=== PATIENT | female | born 1970 | race Asian ===

== ENCOUNTER 2019-11-25 09:41 | Outpatient (CLI) | payer MEDICAID ==
[~2019-11-25] VITALS: Ht 154.9 cm; Wt 70.8 kg
[2019-11-25 10:18] VITALS: BP 117/79
[2019-11-25] MEDS ORDERED: CLARITIN10 M2 ORAL (10:18)
[2019-11-25] MEDS ORDERED: FERROUS SULFAT325 MG ORAL (10:18)
[2019-11-25] MEDS ORDERED: PROAIR HFA8.5 GM INH (10:18)
--- NOTE | 2019-11-25 12:30 | Consultation ---
DATE OF CONSULTATION: 11/25/2019 CONSULTING PHYSICIAN: Clive Chavez M.D. CHIEF COMPLAINT: Rectal bleeding. HISTORY OF PRESENT ILLNESS: This is a 49-year-old female with past medical history of asthma, history of anemia, gallstones, presents to us for complaint of rectal bleeding and anemia. No prior history of endoscopy. No colonoscopy. PAST MEDICAL HISTORY: 1. Asthma. 2. Anemia. 3. Hemorrhoids. 4. Gallstones. PAST SURGICAL HISTORY: Tubal ligation, , cholecystectomy, hemorrhoidectomy. MEDICATIONS: Please see medication reconciliation list. ALLERGIES: To sulfa, penicillin, tetracycline, and Cipro. FAMILY HISTORY: Aunt had ovarian cancer. SOCIAL HISTORY: The patient denies any tobacco, alcohol, or IV drug abuse. REVIEW OF SYSTEMS: Positive for rectal bleeding. Otherwise, no weight loss. No change in bowel habits. PHYSICAL EXAMINATION: VITAL SIGNS: Temperature 97.6, blood pressure is 117/79, pulse 60, respirations 20. HEENT: Normocephalic and atraumatic. Sclerae anicteric. NECK: Supple. No evidence of obvious lymphadenopathy. CARDIOVASCULAR: Regular rhythm. Plus S1, S2. LUNGS: Clear to auscultation bilaterally. ABDOMEN: Positive bowel sounds. Soft and nontender. No rebound. No guarding. No peritoneal sign. EXTREMITIES: No cyanosis. No clubbing. No edema. ASSESSMENT AND PLAN: This is a 49-year-old female with rectal bleeding. Given her age of 49, given this persistent rectal bleeding, we will recommend the patient to have a colonoscopy done. The patient was given instruction for colonoscopy, risks and benefits of the procedure were explained to her, the prep was explained to her. She agreed. We will plan to schedule as soon as she gets authorization. Clive Chavez M.D. DR: SHIV JOB#: [id number] CC:
== END 2019-11-25 11:41 | disposition home or self-care (01) ==
LOC: PAN 09:41
DX: K62.5 Hemorrhage of anus and rectum (principal); Z90.49 Acquired absence of other specified parts of digestive tract
CPT/HCPCS: G0463